=== PATIENT | male | born 1945 | race Caucasian/White ===

== ENCOUNTER 2018-08-26 07:20 | Inpatient (IN) | payer MEDICARE ==
[2018-08-22 11:37] LABS: BASOPHILS % (AUTO) 0.4 % (0-1); EOSINOPHILS # (AUTO) 0.2 X10'3 (0-0.9); EOSINOPHILS % (AUTO) 3.8 % (0-6); LYMPHOCYTES # (AUTO) 2.3 X10'3 (1.1-4.8); MEAN CORPUSCULAR HEMOGLOBIN 30.8 PG (27.0-31.0); MEAN CORPUSCULAR HGB CONC 33.6 % (33.0-36.5); MEAN CORPUSCULAR VOLUME 91.7 FL (78-98); MEAN PLATELET VOLUME 8.1 FL (7.4-10.4); MONOCYTES # (AUTO) 0.5 X10'3 (0-0.9); MONOCYTES % (AUTO) 8.3 % (2-12); NEUTROPHILS # (AUTO) 3.5 X10'3 (1.8-7.7); NEUTROPHILS % (AUTO) 52.5 % (42-75); PRE OP HEMATOCRIT 41.4 % (42.0-52.0); PRE OP HEMOGLOBIN 13.9 g/dL (14.0-17.9); PRE OP PLATELET COUNT 216 X10'3 (140-440); RED BLOOD COUNT 4.51 X10'6 (4.70-6.10); RED CELL DISTRIBUTION WIDTH 13.8 % (11.5-14.5)
[2018-08-22 11:54] LABS: ALBUMIN 3.6 G/DL (3.4-5.0); ALBUMIN/GLOBULIN RATIO 1.1 (1.1-1.5); ALKALINE PHOSPHATASE 74 IU/L (46-116); BLOOD UREA NITROGEN 19 MG/DL (7-18); BUN/CREATININE RATIO 23.2 (5.4-32.0); CALCIUM 9.2 MG/DL (8.5-10.1); CHLORIDE 105 MMOL/L (99-107); CREATININE 0.82 MG/DL (0.60-1.10); PRE OP ALT 70 U/L (30-65); PRE OP ANION GAP 8 (8-16); PRE OP AST 40 U/L (10-37); PRE OP BILIRUB, TOTAL 0.5 MG/DL (0.0-1.0); PRE OP GLUCOSE 106 MG/DL (70-104); PRE OP SODIUM 142 MMOL/L (135-145); TOTAL CARBON DIOXIDE 28.7 MMOL/L (24-32); TOTAL PROTEIN 6.9 G/DL (6.4-8.2); eGFR > 90 ML/MIN
[2018-08-26] VITALS (17 sets, daily range): BP systolic 116–154; BP diastolic 50–94
[~2018-08-26] VITALS: Ht 175.3 cm; Wt 113.9 kg
[~2018-08-26 07:20] MED LIST: C,E,1CAP PO; FENO145T36 PO; FINA5TAB11 PO; FLO0.4C PO; HYDR-4383 PO; LISI40TA4 PO; MONT10TA21 PO; MULT-1180 PO; PANT-47 PO; SIMV20TA5 PO; TUMERIC PO; VANCOMYCIN INJ 1000 MG in NORMAL SALINE 250ml IV.SOLN IV ONE; ZOLP10TA5 PO; albuterol 2.5 MG/3 ML nebule NEB ONE; cefazolin/dext.iso 2gm/100 ML IV ONE; famotidine 20mg tablet PO ONE; ringers solution, lacted 1,000 ML IV SCH; tranexamic acid inj. 1,200 MG in normal saline 100ml IV soln 88 ML IV ONE
[2018-08-26] MEDS ORDERED: ringers solution, lacted 1,000 ML IV SCH (09:22)
[2018-08-26] MEDS ORDERED: ondansetron/PF 4mg/2ml inj IV PRN ×2 (09:25→13:15)
[2018-08-26] MEDS ORDERED: meperidine/PF 25mg/ml syringe IV PRN ×3 (09:25)
[2018-08-26] MEDS ORDERED: proCHLORperazine 10 MG/2 ml inj IV PRN (09:25)
[2018-08-26] MEDS ORDERED: morphine 4 MG/ML inj SYRINge IV PRN ×2 (09:25)
[2018-08-26] MEDS ORDERED: tranexamic acid inj. 1,200 MG in normal saline 100ml IV soln 88 ML IV ONE (09:30)
[2018-08-26] MEDS ORDERED: ketorolac trometh. 30mg/ml inj. ONE (10:19)
[2018-08-26] MEDS ORDERED: ROPIVAcaine 0.5% (5mg/ml) 30ml vial ONE ×2 (10:20→11:08)
[2018-08-26] MEDS ORDERED: vancomycin 1,000mg inj ONE (10:29)
[2018-08-26] MEDS ORDERED: fentaNYL/PF 50MCG/1 ML 2ML syringe ONE (10:35)
[2018-08-26] MEDS ORDERED: propofol inj 20 ML IV ONE (10:36)
[2018-08-26] MEDS ORDERED: MIDAZolam 5mg/5ml vial ONE (10:36)
[2018-08-26] MEDS ORDERED: sevoflurane 250ml liquid IH ONE (11:07)
[2018-08-26] MEDS ORDERED: acetaminophen 325mg tablet PO PRN (13:15)
[2018-08-26] MEDS ORDERED: diphenhydrAMINE 25mg capsule PO PRN ×2 (13:15)
[2018-08-26] MEDS ORDERED: magnesium hydroxide 30ml (MOM) UD suspension PO PRN (13:15)
[2018-08-26] MEDS ORDERED: oxyCODONE IR 5mg (immed. release) tablet PO PRN ×2 (13:15)
[2018-08-26] MEDS ORDERED: HYDROmorphone 1 mg/ml syringe IV PRN ×2 (13:15)
[2018-08-26] MEDS ORDERED: bisacodyl 10mg suppository rectal RC PRN (13:15)
[2018-08-26] MEDS ORDERED: acetaminophen 325mg tablet PO SCH (14:00)
[2018-08-26] MEDS: ketorolac tromethamine 15mg/ml inj. IV SCH ×2 (15:35→23:28)
[2018-08-26] MEDS: potassium cl 20mEq in 1/2 NS 1,000 ML IV SCH (15:36)
[2018-08-26] MEDS: ceFAZolin 1GM/D5W- ADD-VANTAGE 50 ML IV SCH (16:05)
[2018-08-26] MEDS ORDERED: tranexamic acid inj. 1,200 MG in normal saline 100ml IV soln 100 ML IV ONE (16:15)
[2018-08-26] MEDS ORDERED: vancomycin/NS 1 GM ADD-VANTAGE 250 ML IV SCH (20:00)
[2018-08-26] MEDS: gabapentin 300mg capsule PO SCH (20:26)
[2018-08-26] MEDS: tamsulosin 0.4mg capsule PO SCH (20:26)
[2018-08-26] MEDS ORDERED: finasteride 5mg tablet PO SCH (21:00)
[2018-08-26] MEDS ORDERED: sennosides 8.6mg tablet PO SCH (21:00)
[2018-08-26] MEDS ORDERED: pantoprazole 40mg Tablet.DR PO SCH (21:00)
[2018-08-26] MEDS ORDERED: TUMERIC PO SCH (21:00)
[2018-08-26] MEDS ORDERED: atorvastatin 20mg tablet PO SCH (21:00)
[2018-08-26] MEDS ORDERED: zolpidem 5mg tablet PO SCH (21:00)
[2018-08-26] MEDS ORDERED: HYDROcodone/acetaminophen 5mg/325mg tablet PO SCH (21:00)
[2018-08-27] MEDS: ceFAZolin 1GM/D5W- ADD-VANTAGE 50 ML IV SCH
[2018-08-27] MEDS ORDERED: ceFAZolin 1GM/D5W- ADD-VANTAGE 50 ML IV ONE (01:40)
[2018-08-27 02:00] VITALS: BP 133/65
[2018-08-27] MEDS: ketorolac tromethamine 15mg/ml inj. IV SCH ×2 (02:00→08:03)
[2018-08-27] MEDS: potassium cl 20mEq in 1/2 NS 1,000 ML IV SCH ×2 (02:06→05:15)
[2018-08-27 06:00] VITALS: BP 127/73
[2018-08-27 06:10] LABS: BASOPHILS % (AUTO) 0.3 % (0-1); EOSINOPHILS # (AUTO) 0.2 X10'3 (0-0.9); EOSINOPHILS % (AUTO) 1.5 % (0-6); HEMATOCRIT 38.8 % (42.0-52.0); HEMOGLOBIN 12.8 g/dl (14.0-17.9); LYMPHOCYTES # (AUTO) 1.7 X10'3 (1.1-4.8); LYMPHOCYTES % (AUTO) 13.8 % (21-51); MEAN CORPUSCULAR HEMOGLOBIN 30.6 PG (27.0-31.0); MEAN CORPUSCULAR HGB CONC 32.8 % (33.0-36.5); MEAN CORPUSCULAR VOLUME 93.2 FL (78-98); MONOCYTES # (AUTO) 0.8 X10'3 (0-0.9); MONOCYTES % (AUTO) 6.4 % (2-12); NEUTROPHILS # (AUTO) 9.6 X10'3 (1.8-7.7); PLATELET COUNT 219 X10'3 (140-440); RED BLOOD COUNT 4.17 X10'6 (4.70-6.10); RED CELL DISTRIBUTION WIDTH 13.3 % (11.5-14.5); WHITE BLOOD COUNT 12.3 X10'3 (4.5-11.0)
[2018-08-27 06:28] LABS: ANION GAP 6 (8-16); CHLORIDE 104 MMOL/L (99-107); SODIUM 138 MMOL/L (135-145); TOTAL CARBON DIOXIDE 27.7 MMOL/L (24-32)
[2018-08-27 08:00] VITALS: BP 153/71
[2018-08-27] MEDS ORDERED: lisinopril 20mg tablet PO SCH (08:00)
[2018-08-27] MEDS ORDERED: montelukast 10mg tablet PO SCH (08:00)
[2018-08-27] MEDS ORDERED: fenofibrate 145mg tablet PO SCH (08:00)
[2018-08-27] MEDS ORDERED: multivitamins, therapeutics tablet PO SCH (08:00)
[2018-08-27] MEDS ORDERED: beta-carotene(A) w/C & E + minerals tab PO SCH (08:00)
[2018-08-27] MEDS: gabapentin 300mg capsule PO SCH (08:03)
[2018-08-27] MEDS: tamsulosin 0.4mg capsule PO SCH (08:03)
[2018-08-27] MEDS ORDERED: aspirin 325mg tablet PO SCH (08:30)
[2018-08-27] MEDS ORDERED: celeCOXIB 100mg capsule PO SCH (20:00)
[2018-08-28] MEDS ORDERED: acetaminophen 325mg tablet PO PRN (13:15)
== END 2018-08-27 08:30 | disposition home or self-care (01) | DRG 483 ==
LOC: PAS IN 07:20 → EDSTATUS 10:45 → ORTHO 4S 14:06
PROVIDERS: ADMIT Orthopaedic Surgery; ATTEND Orthopaedic Surgery
PROC: 0LS30ZZ Reposition Right Upper Arm Tendon, Open Approach (ICD-10-PCS; 2018-08-26)
PROC: 5A09357 Assistance with Respiratory Ventilation, Less than 24 Consecutive Hours, Continuous Positive Airway Pressure (ICD-10-PCS; 2018-08-26)
PROC: 3E0T3BZ Introduction of Anesthetic Agent into Peripheral Nerves and Plexi, Percutaneous Approach (ICD-10-PCS; 2018-08-26)
PROC: 0RRJ00Z Replacement of Right Shoulder Joint with Reverse Ball and Socket Synthetic Substitute, Open Approach (ICD-10-PCS; principal; 2018-08-26 11:07)
DX: M19.011 Primary osteoarthritis, right shoulder (principal); D62 Acute posthemorrhagic anemia; M75.121 Complete rotator cuff tear or rupture of right shoulder, not specified as traumatic; M75.21 Bicipital tendinitis, right shoulder; M25.511 Pain in right shoulder; E78.5 Hyperlipidemia, unspecified; G47.30 Sleep apnea, unspecified; E66.01 Morbid (severe) obesity due to excess calories; I10 Essential (primary) hypertension; K21.9 Gastro-esophageal reflux disease without esophagitis; M65.811 Other synovitis and tenosynovitis, right shoulder; N40.0 Benign prostatic hyperplasia without lower urinary tract symptoms; Z79.899 Other long term (current) drug therapy; Z88.2 Allergy status to sulfonamides; Z68.37 Body mass index [BMI] 37.0-37.9, adult
CPT/HCPCS: 36415; 80051; 80053; 85025; 87070; 93005; 97110; 97162; 97530; A4565; A7000; G0378; J0690; J1885; J2250; J2704; J2795; J3010; J3370; J7030; J7040; J7120

== ENCOUNTER 2021-08-30 02:19 | Emergency (ER) | payer BC, MEDICARE ==
[~2021-08-30] VITALS: Ht 172.7 cm; Wt 120.5 kg
[~2021-08-30 02:19] MED LIST changes: +FENO145T26 PO; -FENO145T36 PO; +LISI40TA13 PO; -LISI40TA4 PO; +SIMV-42 PO; -SIMV20TA5 PO; -VANCOMYCIN INJ 1000 MG in NORMAL SALINE 250ml IV.SOLN IV ONE; -albuterol 2.5 MG/3 ML nebule NEB ONE; -cefazolin/dext.iso 2gm/100 ML IV ONE; -famotidine 20mg tablet PO ONE; -ringers solution, lacted 1,000 ML IV SCH; -tranexamic acid inj. 1,200 MG in normal saline 100ml IV soln 88 ML IV ONE
[2021-08-30 03:40] VITALS: BP 169/78
== END 2021-08-30 03:41 | disposition home or self-care (01) ==
LOC: ER 02:19
DX: S93.114A Dislocation of interphalangeal joint of right lesser toe(s), initial encounter (principal); M79.672 Pain in left foot; I10 Essential (primary) hypertension; Z98.890 Other specified postprocedural states; Z79.899 Other long term (current) drug therapy; W01.0XXA Fall on same level from slipping, tripping and stumbling without subsequent striking against object, initial encounter; Y93.89 Activity, other specified; Y92.89 Other specified places as the place of occurrence of the external cause; Y99.8 Other external cause status
CPT/HCPCS: 28660; 73630; 99284

== ENCOUNTER 2024-02-12 12:59 | Inpatient (IN) | payer BC ==
[~2024-02-12] VITALS: Ht 174 cm; Wt 108.5 kg
[~2024-02-12 12:59] MED LIST changes: +MONT-47 PO; -MONT10TA21 PO
[2024-02-12] MEDS ORDERED: iohexol 350MG/ML 100ml bottle IV ONE (13:07)
[2024-02-12 13:39] LABS: BASOPHILS # (AUTO) 0.1 X10'3 (0-0.2); BASOPHILS % (AUTO) 0.9 % (0-1); EOSINOPHILS # (AUTO) 0.1 X10'3 (0-0.9); EOSINOPHILS % (AUTO) 1.8 % (0-6); HEMATOCRIT 38.1 % (42.0-52.0); HEMOGLOBIN 13.2 g/dl (14.0-17.9); LYMPHOCYTES # (AUTO) 2.8 X10'3 (1.1-4.8); LYMPHOCYTES % (AUTO) 38.6 % (21-51); MEAN CORPUSCULAR HEMOGLOBIN 32.3 PG (27.0-31.0); MEAN CORPUSCULAR HGB CONC 34.7 g/dL (33.0-36.5); MEAN CORPUSCULAR VOLUME 93.1 FL (78-98); MONOCYTES # (AUTO) 0.6 X10'3 (0-0.9); MONOCYTES % (AUTO) 7.8 % (2-12); NEUTROPHILS # (AUTO) 3.8 X10'3 (1.8-7.7); NEUTROPHILS % (AUTO) 50.9 % (42-75); PLATELET COUNT 165 X10'3 (140-440); RED BLOOD COUNT 4.09 X10'6 (4.70-6.10); WHITE BLOOD COUNT 7.4 X10'3 (4.5-11.0)
[2024-02-12 13:51] LABS: ALANINE AMINOTRANSFERASE 37 U/L (12-78); ALBUMIN 3.4 G/DL (3.4-5.0); ALBUMIN/GLOBULIN RATIO 0.9 (1.1-1.5); ALKALINE PHOSPHATASE 77 IU/L (46-116); ANION GAP 11 (8-16); ASPARTATE AMINO TRANSFERASE 34 U/L (10-37); BILIRUBIN,TOTAL 0.7 MG/DL (0.1-1.0); BLOOD UREA NITROGEN 15 MG/DL (7-18); CALCIUM 8.7 MG/DL (8.5-10.1); CHLORIDE 102 MMOL/L (99-107); CREATININE 0.94 MG/DL (0.60-1.10); GLUCOSE 119 MG/DL (70-104); POTASSIUM 3.2 MMOL/L (3.5-5.1); SODIUM 139 MMOL/L (135-145); TOTAL CARBON DIOXIDE 26.1 MMOL/L (24-32); TOTAL PROTEIN 7.2 G/DL (6.4-8.2); eCRCL 64 ML/MIN; eGFR 78 ML/MIN
[2024-02-12 14:04] LABS: PRO BRAIN NATRIURETIC PEPTIDE 65 PG/ML (0-450)
[2024-02-12 14:06] LABS: APTT 26 SECONDS (22-32); INR 1.1 INR; PROTHROMBIN TIME 11.9 SECONDS (9.0-12.0)
[2024-02-12] MEDS: aspirin 81mg tab.chew PO ONE (14:11)
[2024-02-12] MEDS: MESSAGE TO NURSING PO ONE (14:15)
[2024-02-12] MEDS: PERFLUTREN PROTEIN-A MICROSPHR (Optison) 0.22 MG/ML 3ML VIAL IV ONE (14:41)
[2024-02-12] MEDS: normal saline 1000ml 1,000 ML IV SCH (14:46)
[2024-02-12 15:10] LABS: BILIRUBIN,URINE NEGATIVE (Neg); CLARITY,URINE CLEAR (Clear); COLOR,URINE STRAW (Yellow); GLUCOSE, URINE NEGATIVE (Neg); KETONES,URINE NEGATIVE (Neg); LEUKOCYTE ESTERASE ,URINE NEGATIVE (Neg); NITRITES, URINE NEGATIVE (Neg); OCCULT BLOOD,URINE NEGATIVE (Neg); PH,URINE 6.5 (4.8-8.0); PROTEIN,URINE NEGATIVE (Neg); UROBILINOGEN,URINE 0.2 E.U/dL (0.2-1.0)
[2024-02-12 15:12] LABS: UA COLLECTION TYPE NON-SPECIFIED
[2024-02-12] MEDS ORDERED: magnesium 4gm in 100ml NS 100 ML IV PRN (15:20)
[2024-02-12] MEDS ORDERED: potassium Cl 20 mEq SR tablet PO PRN (15:20)
[2024-02-12] MEDS ORDERED: magnesium 2GM in 50ml NS 50 ML IV PRN (15:20)
[2024-02-12] MEDS ORDERED: magnesium Cl slow-release 64mg tablet PO PRN (15:20)
[2024-02-12] MEDS ORDERED: potassium Cl 40MEQ/1/2NS 520ml 520 ML IV PRN (15:20)
[2024-02-12] MEDS: potassium Cl 20 mEq SR tablet PO PRN (15:42)
[2024-02-12] MEDS: K and/or MAG REPLACEMENT MC SCH (15:43)
[2024-02-12 16:14] LABS: MAGNESIUM 1.9 MG/DL (1.5-2.4); POTASSIUM 3.2 MMOL/L (3.5-5.1)
[2024-02-12 16:16] VITALS: BP_SYST 122; BP_SYST 157; BP_SYST 164; BP_DIAS 61; BP_DIAS 83; BP_DIAS 88; PULSE 69; PULSE 71; PULSE 74
[2024-02-12 16:18] VITALS: PULSE 69; RESP 20; TEMP 97.8; O2SAT 94
[2024-02-12] MEDS ORDERED: LINA145C PO (16:36)
[2024-02-12] MEDS ORDERED: SIMV-45 PO (16:36)
[2024-02-12] MEDS ORDERED: TRAZ-256 PO (16:36)
[2024-02-12] MEDS ORDERED: FENO67CA14 PO (16:36)
[2024-02-12] MEDS ORDERED: LOSA100T58 PO (16:36)
[2024-02-12] MEDS ORDERED: METF-1203 PO (16:36)
[2024-02-12] MEDS ORDERED: FLUT1BLS16 INH (16:36)
[2024-02-12] MEDS ORDERED: ALBU10.7 INH (16:36)
[2024-02-12] MEDS ORDERED: HYDR-3972 PO (16:36)
[2024-02-12] MEDS ORDERED: CHLO25TA10 PO (16:36)
[2024-02-12 16:45] VITALS: RESP 16; O2SAT 95
[2024-02-12] MEDS: atorvastatin 20mg tablet PO SCH (17:07)
[2024-02-12] MEDS: clopidogrel 75mg tablet PO SCH (17:08)
[2024-02-12 20:00] VITALS: BP_SYST 141; BP_SYST 158; BP_SYST 164; BP_DIAS 65; BP_DIAS 78; BP_DIAS 83; PULSE 62; PULSE 65; PULSE 71; PULSE 76; RESP 18; TEMP 97; O2SAT 94
[2024-02-12 20:14] VITALS: RESP 18; O2SAT 94
[2024-02-12] MEDS: traZODone 50mg tablet PO ONE (21:11)
[2024-02-12] MEDS: HYDROcodone/acetaminophen 10/325mg tab PO ONE (21:13)
[2024-02-12 21:34] VITALS: BP 164/83; PULSE 71; RESP 18; TEMP 97.5; O2SAT 95
[2024-02-13] VITALS (7 sets, daily range): BP systolic 116–178; BP diastolic 60–78; PULSE 65–73; RESP 15–18; TEMP 97–97.8; O2SAT 93–96
[2024-02-13 06:54] LABS: BASOPHILS # (AUTO) 0.1 X10'3 (0-0.2); BASOPHILS % (AUTO) 1.1 % (0-1); EOSINOPHILS # (AUTO) 0.1 X10'3 (0-0.9); EOSINOPHILS % (AUTO) 2.8 % (0-6); HEMATOCRIT 37.2 % (42.0-52.0); LYMPHOCYTES # (AUTO) 2.1 X10'3 (1.1-4.8); LYMPHOCYTES % (AUTO) 43.7 % (21-51); MEAN CORPUSCULAR HEMOGLOBIN 32.1 PG (27.0-31.0); MEAN CORPUSCULAR HGB CONC 34.8 g/dL (33.0-36.5); MEAN CORPUSCULAR VOLUME 92.3 FL (78-98); MEAN PLATELET VOLUME 9.1 FL (7.4-10.4); MONOCYTES # (AUTO) 0.3 X10'3 (0-0.9); MONOCYTES % (AUTO) 6.6 % (2-12); NEUTROPHILS # (AUTO) 2.2 X10'3 (1.8-7.7); NEUTROPHILS % (AUTO) 45.8 % (42-75); PLATELET COUNT 143 X10'3 (140-440); RED BLOOD COUNT 4.03 X10'6 (4.70-6.10); RED CELL DISTRIBUTION WIDTH 13.7 % (11.5-14.5); WHITE BLOOD COUNT 4.8 X10'3 (4.5-11.0)
[2024-02-13 07:00] LABS: ALANINE AMINOTRANSFERASE 30 U/L (12-78); ALBUMIN 3.1 G/DL (3.4-5.0); ALBUMIN/GLOBULIN RATIO 0.8 (1.1-1.5); ALKALINE PHOSPHATASE 68 IU/L (46-116); ANION GAP 5 (8-16); ASPARTATE AMINO TRANSFERASE 34 U/L (10-37); BILIRUBIN,TOTAL 0.8 MG/DL (0.1-1.0); BLOOD UREA NITROGEN 12 MG/DL (7-18); BUN/CREATININE RATIO 14.5 (10.0-20.0); CALCIUM 8.9 MG/DL (8.5-10.1); CHLORIDE 104 MMOL/L (99-107); CHOL/HDL RATIO 3.3 (0.00-4.99); CHOLESTEROL 128 MG/DL (0-200); CREATININE 0.83 MG/DL (0.60-1.10); GLUCOSE 111 MG/DL (70-104); HDL CHOLESTEROL 39 MG/DL (35-60); LDL CHOLESTEROL 55 MG/DL (50-100); POTASSIUM 3.7 MMOL/L (3.5-5.1); SODIUM 140 MMOL/L (135-145); TOTAL CARBON DIOXIDE 31.1 MMOL/L (24-32); TOTAL PROTEIN 6.8 G/DL (6.4-8.2); TRIGLYCERIDES 237 MG/DL (20-135); eCRCL 73 ML/MIN; eGFR 90 ML/MIN
[2024-02-13] MEDS: aspirin 81mg, enteric-coated 1 TAB TABLET.DR PO SCH (08:26)
[2024-02-13] MEDS ORDERED: GADOTERATE MEGLUMINE 7.5 MMOL/15 ML VIAL IV ONE (15:04)
[2024-02-13] MEDS ORDERED: LEVO750T68 PO (17:56)
== END 2024-02-13 18:50 | disposition home or self-care (01) | DRG 72 ==
LOC: ER 12:59 → ORTHO 4S 14:29
PROVIDERS: ADMIT Family Medicine; ATTEND Family Medicine
PROC: B3281ZZ Computerized Tomography (CT Scan) of Bilateral Internal Carotid Arteries using Low Osmolar Contrast (ICD-10-PCS; principal; 2024-02-12)
DX: G93.41 Metabolic encephalopathy (principal); R51.9 Headache, unspecified; J44.9 Chronic obstructive pulmonary disease, unspecified; E11.9 Type 2 diabetes mellitus without complications; E78.5 Hyperlipidemia, unspecified; I10 Essential (primary) hypertension; Z96.641 Presence of right artificial hip joint; Z79.899 Other long term (current) drug therapy; Z85.51 Personal history of malignant neoplasm of bladder; Z85.820 Personal history of malignant melanoma of skin
CPT/HCPCS: 36415; 70450; 70496; 70498; 70551; 70553; 71045; 80053; 80061; 81003; 82948; 83036; 83735; 83880; 84132; 84484; 85025; 85610; 85730; 86885; 86900; 86901; 87081; 93005; 93306; 99285; A4615; A9575; G0378; J3490; J7030; Q9967

== ENCOUNTER 2025-08-11 04:04 | Emergency (ER) | payer BC ==
[~2025-08-11] VITALS: Ht 172.7 cm; Wt 120.0 kg
[~2025-08-11 04:04] MED LIST changes: +ALBU10.7 INH; +CHLO25TA10 PO; -FENO145T26 PO; +FENO67CA14 PO; -FLO0.4C PO; +FLUT1BLS16 INH; +HYDR-3972 PO; -HYDR-4383 PO; +LINA145C PO; -LISI40TA13 PO; +LOSA100T58 PO; +METF-1203 PO; -SIMV-42 PO; +SIMV-45 PO; +TAMS-55 PO; +TRAZ-256 PO; -ZOLP10TA5 PO
[2025-08-11 04:07] VITALS: TEMP 98
[2025-08-11] MEDS ORDERED: LidoCAINE 2% Topical Jelly 11mL syringe (UROJET) TOP ONE (04:25)
--- NOTE | 2025-08-11 04:35 | Physician Documentation ---
History of Present Illness General Chief Complaint: Urinary Retention Stated Complaint: RECTAL PAIN Time Seen by MD: 04:22 Primary Medical Doctor: TREVON ROJAS Mode of Arrival: POV History of Present Illness Initial Comments Patient is a 80-year-old male complains of difficulty urinating over last two days. The patient states that he has had lower abdominal discomfort and he presented to the emergency department. Patient has had a history of prostate issues in the past and has had urinary retention in the past. He denies any fevers or chills the patient states his symptoms are moderate and persist Medication Reconciliation Allergies: Coded Allergies: No Known Allergies (Unverified , 08/11/25) Scheduled Albuterol Sulfate/Budesonide (Airsupra 90-80 Mcg Inhaler), 1 PUFF INH PRN, (Reported) C,E,Zinc,Copper 11/Cyzyi1y/Lut (Ocuvite Adult 50 Plus Softgel), 1 CAP PO DAILY, (Reported) Chlorthalidone (Chlorthalidone), 0.5 TAB PO DAILY, (Reported) Fenofibrate,Micronized (Fenofibrate), 1 CAP PO DAILY, (Reported) Finasteride (Finasteride), 1 TABLET PO HS, (Reported) Fluticasone/Umeclidin/Vilanter (Trelegy Ellipta 200-62.5-25), 1 PUFFS INH DAILY, (Reported) Hydrocodone Bit/Acetaminophen (Hydrocodon-Acetaminophn 10-325 tablet), 1 TAB PO HS, (Reported) Hydrocortisone Acetate (Anusol-Hc), 1 SUPP RC BID Linaclotide (Linzess), 1 CAP PO DAILY, (Reported) Losartan Potassium (Losartan Potassium), 1 TAB PO DAILY, (Reported) Metformin HCl (Metformin HCl), 1 TAB PO BID, (Reported) Montelukast Sodium (Singulair), 1 TAB PO DAILY, (Reported) Multivitamin/Iron/Folic Acid (Centrum Adults Tablet), 1 TAB PO DAILY, (Reported) Pantoprazole Sodium (PROTONIX tablet), 1 TABLET PO HS, (Reported) Simvastatin (Simvastatin), 1 TAB PO HS, (Reported) Tamsulosin Hcl* (Flomax*), 1 CAP PO BID, (Reported) Trazodone HCl (Trazodone HCl), 2 TAB PO HS, (Reported) [Tumeric ], 900 MG PO HS, (Reported) Past Medical History Past Medical History: Hypertension, Sleep Apnea, Arthritis, Chronic Pain Past Surgical History: orthopedic surgeries Other Past Surgical History: right hip replacement 10/2015 Drug Use: none Lives with: Spouse Lives In: Home Review of Systems All Other Systems at this time: Reviewed and Negative Physical Exam Physical Exam Vital Signs: Temperature: 98.0, Heart Rate: 120, Respiratory Rate: 17, BP: 153/87, Pulse Oximetry: 98, Weight: 120.000 Physical Exam VITALS: Reviewed and as above. GENERAL: Alert, no apparent distress. HEENT: Normocephalic, atraumatic, PERRL, EOMI, dry mucosa, no erythema RESPIRATORY: Lungs clear, normal breath sounds, no respiratory distress. CHEST: No accessory muscle use, no retractions CV: Regular rate, rhythm, no edema, no murmur, No: JVD GI: Soft, suprapubic tenderness and slight distention, bowels sounds present, no rebound, guarding, or rigidity BACK: No CVA tenderness, or swelling MUSCULOSKELETAL: No deformities, no edema SKIN: Warm and dry, no rash NEURO: Oriented x4, No motor or sensory deficit PSYCH: Normal mood and affect, no agitation Progress Results/Orders Results/Orders Completed Orders - OHLFS,HARLEEN Callaway MD Lidocaine 2% Jelly 11ml Syr (Glydo-Lidoc (08/11/25 04:25) * (B) Carpenter- Non Protocol * Q12H@07,19 (08/11/25 04:22) Ua W/Microscopic, Cult If Ind (08/11/25 04:44) Vital Signs 08/11/25 08/11/25 08/11/25 04:07 04:25 06:47 Temp 98.0 Pulse 120 77 Resp 18 17 15 B/P (MAP) 153/87 135/65 Pulse Ox 98 94 Laboratory Tests Test 08/11/25 04:44 Urine Specimen Description Carpenter cath Urine Color Yellow Urine Clarity Clear Urine pH 7.0 Urine Specific Tracy 1.015 Urine Protein Negative Urine Glucose (UA) >=1000 H Urine Ketones Negative Urine Occult Blood Negative Urine Nitrite Negative Urine Bilirubin Negative Urine Urobilinogen 1.0 Urine Leukocyte Esterase Negative Urine RBC 0-2 Urine WBC None seen Urine Squamous Epithelial Cells Few Urine Bacteria None seen Urine Culture Indicated Not ind Volume Urine Centrifuged 10 ml Urine Comment Medical Decision Making Additional information obtaine: old records Findings 80-year-old male with urinary symptoms and decreased she urinary output patient has a large amount of urine in his bladder and a postvoid, patient was given a Carpenter catheter he will be discharged with a leg bag there was no evidence of a UTI the patient is hemodynamically stable. Prior hospitalizations have been reviewed the patient's pulse oximetry was interpreted as normal and adequate the patient will be discharged Differential Diagnosis uti urinary retention Departure Disposition: HOME / SELF CARE / HOMELESS Impression: Primary Impression: Acute urinary retention Discharge Instructions: Acute Urinary Retention, Male Referrals: NO PRIMARY CARE PROVIDER (PCP) Prescriptions Hydrocortisone Acetate (Anusol-Hc) 25 Mg Supp.rect 1 SUPP RC BID, #28 SUPP may sub any other hemmorhoid supposity or cream on formulary Prov: HARLEEN KHAN MD 08/11/25 Signature Scribe Signature: no scribe Attestation: The note accurately reflects work and decisions made by me.Harleen Khan MD 08/13/25 07:13 HARLEEN KHAN MD Aug 11, 2025 04:35
[2025-08-11 04:55] LABS: LEUKOCYTE ESTERASE ,URINE NEGATIVE (Neg); NITRITES, URINE NEGATIVE (Neg); OCCULT BLOOD,URINE NEGATIVE (Neg)
[2025-08-11 04:58] LABS: UA COLLECTION TYPE FOLEY CATH
[2025-08-11 05:03] LABS: SQUAMOUS EPITHELIAL CELL,UR FEW /LPF (FEW)
[2025-08-11] MEDS ORDERED: HYDR25SU32 RC (06:01)
[2025-08-11 06:47] VITALS: BP 135/65; PULSE 77; RESP 15; O2SAT 94
== END 2025-08-11 06:50 | disposition home or self-care (01) ==
LOC: ER 04:05
DX: R33.9 Retention of urine, unspecified (principal); M19.90 Unspecified osteoarthritis, unspecified site; I10 Essential (primary) hypertension; G89.29 Other chronic pain; G47.30 Sleep apnea, unspecified; Z79.899 Other long term (current) drug therapy
CPT/HCPCS: 51702; 81001; 99284; A4314; A4340; A4358

== ENCOUNTER 2025-08-16 09:05 | Emergency (ER) | payer BC ==
[~2025-08-16] VITALS: Ht 172.7 cm; Wt 115.8 kg
[~2025-08-16 09:05] MED LIST changes: +HYDR25SU32 RC
--- NOTE | 2025-08-16 09:15 | ELECTROCARDIOGRAPH REPORT ---
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 Kenyon Brooks Measurements Intervals [place] Rate: 113 P: -52 ND: 126 QRS: 94 QRSD: 158 T: -24 QT: 361 QTc: 495 Interpretive Statements Sinus or ectopic atrial tachycardia RBBB and LPFB Electronically Signed On 08-17-2025 7:40:[address] Kenyon Brooks Please click the below link to view image of tracing.
[2025-08-16 09:39] LABS: MEAN PLATELET VOLUME 8.7 FL (7.4-10.4); RED CELL DISTRIBUTION WIDTH 14.8 % (11.5-14.5)
--- NOTE | 2025-08-16 09:56 | Physician Documentation ---
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 Patient reports he has allergies cause his shortness of breath to worsen and he presented to his primary care office this morning to receive a Kenalog injection however due to his tachycardia they recommended he come to the emergency department. Patient is unable to provide a clear timeline of worsening symptoms however his family member reports that his shortness of breath has been much worse lately with him becoming short of breath at rest and when speaking. Patient does report that he has a pulse oximeter at home reporting that he often sits at around 91-92% at rest. Medication Reconciliation Allergies: Coded Allergies: No Known Allergies (Unverified , 08/16/25) Scheduled Albuterol Sulfate/Budesonide (Airsupra 90-80 Mcg Inhaler), 1 PUFF INH PRN, (Reported) C,E,Zinc,Copper 11/Rpwxz9i/Lut (Ocuvite Adult 50 Plus Softgel), 1 CAP PO DAILY, (Reported) Chlorthalidone (Chlorthalidone), 0.5 TAB PO DAILY, (Reported) Fenofibrate,Micronized (Fenofibrate), 1 CAP PO DAILY, (Reported) Finasteride (Finasteride), 1 TABLET PO HS, (Reported) Fluticasone/Umeclidin/Vilanter (Trelegy Ellipta 200-62.5-25), 1 PUFFS INH DAILY, (Reported) Hydrocodone Bit/Acetaminophen (Hydrocodon-Acetaminophn 10-325 tablet), 1 TAB PO HS, (Reported) Hydrocortisone Acetate (Anusol-Hc), 1 SUPP RC BID Linaclotide (Linzess), 1 CAP PO DAILY, (Reported) Losartan Potassium (Losartan Potassium), 1 TAB PO DAILY, (Reported) Metformin HCl (Metformin HCl), 1 TAB PO BID, (Reported) Montelukast Sodium (Singulair), 1 TAB PO DAILY, (Reported) Multivitamin/Iron/Folic Acid (Centrum Adults Tablet), 1 TAB PO DAILY, (Reported) Pantoprazole Sodium (PROTONIX tablet), 1 TABLET PO HS, (Reported) Simvastatin (Simvastatin), 1 TAB PO HS, (Reported) Tamsulosin Hcl* (Flomax*), 1 CAP PO BID, (Reported) Trazodone HCl (Trazodone HCl), 2 TAB PO HS, (Reported) [Tumeric ], 900 MG PO HS, (Reported) Past Medical History Past Medical History: Hypertension, Sleep Apnea, Arthritis, Chronic Pain Past Surgical History: orthopedic surgeries Other Past Surgical History: right hip replacement 10/2015 Drug Use: none Lives with: Spouse Lives In: Home Review of Systems ROS As stated above in the HPI, otherwise all systems are reviewed and negative. Physical Exam Vital Signs: Temperature: 96.9, Source: Temporal, Heart Rate: 106, Respiratory Rate: 16, BP: 121/69, Pulse Oximetry: 93, Weight: 115.800 Oxygen Flow Rate: 0 Physical Exam VITALS: Reviewed and as above. GENERAL: Alert, nontoxic appearing, no apparent distress. RESPIRATORY: No increased work of breathing, no respiratory distress, speaking in full sentences, diminished though clear lung sounds in all dalal CV: Regular rate and rhythm no murmur SKIN: Warm and dry NEURO: GCS 15 Progress Results/Orders Results/Orders Completed Orders - NAHUN ESCALANTE Triamcinolone Acet 40mg/Ml Inj (Kenalog- (08/16/25 10:25) Vital Signs 08/16/25 08/16/25 08/16/25 08/16/25 09:13 09:38 09:38 10:52 Temp 96.9 96.9 96.9 Pulse 116 106 108 Resp 20 16 16 13 B/P (MAP) 121/69 (86) 122/63 Pulse Ox 95 93 94 O2 Flow Rate 0 0 Laboratory Tests Test 08/16/25 09:17 White Blood Count 9.6 Red Blood Count 4.47 L Hemoglobin 13.4 L Hematocrit 39.7 L Mean Corpuscular Volume 88.9 Mean Corpuscular Hemoglobin 30.1 Mean Corpuscular Hemoglobin Concent 33.8 Red Cell Distribution Width 14.8 H Platelet Count 183 Mean Platelet Volume 8.7 Neutrophils (%) (Auto) 77.5 H Lymphocytes (%) (Auto) 13.8 L Monocytes (%) (Auto) 7.7 Eosinophils (%) (Auto) 0.4 Basophils (%) (Auto) 0.6 Neutrophils # (Auto) 7.4 Lymphocytes # (Auto) 1.3 Monocytes # (Auto) 0.7 Eosinophils # (Auto) 0.0 Basophils # (Auto) 0.1 CBC Comment Sodium Level 137 Potassium Level 3.7 Chloride Level 101 Carbon Dioxide Level 28.0 Anion Gap 8 Blood Urea Nitrogen 16 Creatinine 1.03 Estimated GFR/1.73 m2 70 BUN/Creatinine Ratio 15.5 Glucose Level 124 H Calcium Level 9.2 Troponin I High Sensitivity 4 Pro-B-Type Natriuretic Peptide 112 Albumin 3.6 Chemistry Comments EKG/XRAY/CT/US/VASC/MRI EKG : Additional Comment EKG at 0913 interpreted by myself as: Sinus tachycardia at a rate of 113, right bundle branch block, normal axis, no ST segment elevation or depression Chest X-Ray : Additional Comments Exam: CHEST,SINGLE VIEW DI CHEST,SINGLE VIEW, HISTORY: CP COMPARISON: DI CHEST,SINGLE VIEW on DOS: 02/12/24 DI CHEST,SINGLE VIEW on DOS: 02/12/24 TECHNICAL DATA: 1 view of the chest was obtained. FINDINGS: Lines and tubes: None Cardiomediastinal silhouette: normal Pulmonary vasculature: normal Lung expansion: normal Lung airspace: normal Lung interstitium: normal Pleura: normal Pneumothorax: no Bones: Unremarkable Other: no IMPRESSION: No acute intrathoracic abnormality. Electronically Signed by:ETHAN BENNETT MD Date & Time: 08/16/25 1018 Dictated by: ETHAN BENNETT MD Dictation date and time: 08/16/25 1018 I have reviewed and agree with the radiology report. I have reviewed and interpreted the imaging as: No focal consolidation or pneumothorax Heart Score: Heart Score Response (Comments) Value History N/A 0 EKG Normal 0 Age >65 2 Risk Factors 1 or 2 risk factors 1 Troponin Normal limit 0 Total 3 Medical Decision Making Additional information obtaine: family Findings This is a 80-year-old male who presented to the emergency department after being directed to the emergency department by his primary care office for concern for tachycardia, patient this is accompanied by his family member who was concerned about the patient's increasing shortness of breath over the past several years with or shortness breath recently, patient attributes his symptoms to allergies and chronic lung disease which he was seeing his primary care provider this morning for to receive a Kenalog injection. Patient reported a strong preference for outpatient management and was requesting his Kenalog shot as he reported this usually resolves his shortness of breath symptoms. Patient was well-appearing with no evident shortness of breath and physical exam was benign with slightly diminished though clear lung sounds, vital signs demonstrated low though adequate SpO2 at 92% to 94% on room air. Lab work did not demonstrate evidence of significant hemologic, metabolic or electrolyte abnormality and troponin was not elevated. EKG unchanged from previous visits demonstrating rig ht bundle branch block and sinus tachycardia. While patient is mildly tachycardic without a clear cause did report spouse was having a procedure this morning therefore believes tachycardia may be stress or anxiety related at this time the careful discussion with the patient and with shared decision-making further workup deferred and patient will follow up with primary care provider and [facility] administrator in the next few weeks., patient is to return to the emergency department if tachycardia remains persistent and patient provided home care instructions, follow up instructions, and return to care precautions which he verbalized understanding of. Heart score of 3 due to age and past medical history, at this time I have very low suspicion of acute cardiac emergency. Heart Score: 3 Differential Dx:Considerations: Include: anxiety, asthma, bronchitis, cardiogenic shock, CHF, COPD, dysrhythmia, hypertension, accelerated, hypertension, essential, hypertension, malignant, hyperventilation, myocardial infarction, pneumonia, pneumonitis, PSVT, pulmonary embolism, respiratory distress, respiratory failure, upper resp. infection Departure Time of Disposition: 10:36 Disposition: 01 HOME / SELF CARE / HOMELESS Impression: Primary Impression: Tachycardia Additional Impression: SOB (shortness of breath) on exertion Discharge Instructions: Shortness of Breath, Adult, [id number] Additional Instructions: Your exam did not demonstrate an immediate emergency however your describes symptoms may represent worsening of your chronic lung condition, please follow up as soon as possible with your primary care provider, [facility] administrator, and allergy physician for further evaluation. There is not a clear cause of your increased heart rate however this time I am attributing it to possible stress due to your spouse is procedure this morning, if this is persistent please return to the emergency department. Follow up with your [facility] administrator and primary care providers as scheduled. Please return to the emergency department for any new or worsening concerning symptoms. Referrals: NO PRIMARY CARE PROVIDER (PCP) Education Educated: Patient, Family Educated regarding: diagnosis, treatment, prognosis, need for follow up Signature Scribe Signature: No Scribe Attestation: The note accurately reflects work and decisions made by me.NADINE Mendez 08/16/25 20:14 NAHUN ESCALANTE Aug 16, 2025 09:56
[2025-08-16 10:05] LABS: CREATININE 1.03 MG/DL (0.60-1.10); PRO BRAIN NATRIURETIC PEPTIDE 112 PG/ML (0-450); TOTAL CARBON DIOXIDE 28.0 MMOL/L (24-32); eCRCL 56 ML/MIN; eGFR 70 ML/MIN
--- NOTE | 2025-08-16 10:20 | RADIOLOGY REPORT ---
DI CHEST,SINGLE VIEW, HISTORY: CP COMPARISON: DI CHEST,SINGLE VIEW on DOS: 02/12/24 DI CHEST,SINGLE VIEW on DOS: 02/12/24 TECHNICAL DATA: 1 view of the chest was obtained. FINDINGS: Lines and tubes: None Cardiomediastinal silhouette: normal Pulmonary vasculature: normal Lung expansion: normal Lung airspace: normal Lung interstitium: normal Pleura: normal Pneumothorax: no Bones: Unremarkable Other: no IMPRESSION: No acute intrathoracic abnormality.
[2025-08-16] MEDS: triamcinolone acetonide 40mg/ml inj IM ONE (10:33)
[2025-08-16 10:52] VITALS: BP 122/63; PULSE 108; RESP 13; TEMP 96.9; O2SAT 94
== END 2025-08-16 10:56 | disposition home or self-care (01) ==
LOC: ER 09:06
DX: R00.0 Tachycardia, unspecified (principal); R06.02 Shortness of breath; I10 Essential (primary) hypertension; G89.29 Other chronic pain; G47.30 Sleep apnea, unspecified; M19.90 Unspecified osteoarthritis, unspecified site; Z79.899 Other long term (current) drug therapy; Z79.84 Long term (current) use of oral hypoglycemic drugs
CPT/HCPCS: 36415; 71045; 80048; 83880; 84484; 85025; 93005; 96372; 99285; J3301